=== PATIENT | female | born 1995 | race Caucasian/White ===

== ENCOUNTER 2017-01-07 22:46 | Inpatient (IN) | payer OTHER ==
[~2017-01-07] VITALS: Ht 160 cm; Wt 56.2 kg
[2017-01-07 23:05] VITALS: Ht 160 cm; Wt 56.2 kg
[2017-01-07 23:07] VITALS: BP 111/60; PULSE 59; RESP 18
[2017-01-07] MEDS ORDERED: PRENAT PO (23:14)
[2017-01-07] MEDS ORDERED: CYAN100018 PO (23:14)
[2017-01-07] MEDS ORDERED: IRON18TA PO (23:14)
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
[2017-01-07] MEDS: LACTATED RINGER'S 1,000 ML IV* SCH (23:35)
[2017-01-08 00:07] LABS: ADD SCAN DIFF NO
[2017-01-08 00:09] LABS: ABNORMAL IP MESSAGE 1; HEMATOCRIT 28.9 % (37.0-47.0); HEMOGLOBIN 8.6 g/dl (12.0-16.0); MEAN CORPUSCULAR HEMOGLOBIN 21.1 pg (29.0-33.0); MEAN CORPUSCULAR HGB CONC 29.8 g/dl (32.0-37.0); PLATELET COUNT 210 10^3/UL (140-415); RED BLOOD COUNT 4.07 10^6/ul (4.20-5.40); RED CELL DISTRIBUTION WIDTH 20.1 % (11.5-14.5); WHITE BLOOD COUNT 11.9 10^3/ul (4.8-10.8)
[2017-01-08 01:58] LABS: LYMPHOCYTES # 1.3 10^3/ul (0.8-2.9); MONOCYTE # 0.2 10^3/ul (0.3-0.9); NEUTROPHIL # 10.4 10^3/ul (1.6-7.5)
[2017-01-08 02:02] LABS: PLATELET ESTIMATE PLT APPEAR ADEQUATE
[2017-01-08] MEDS: LACTATED RINGER'S 1,000 ML IV* SCH ×3 (02:05→13:18)
--- NOTE | 2017-01-08 02:19 | RADRPT ---
PROCEDURE: Biophysical profile. CLINICAL INDICATION: Pelvic pain. TECHNIQUE: Multiple sonographic images of the pelvis were obtained with transabdominal technique. Endovaginal evaluation of the cervix was also performed. COMPARISON: No prior studies are available for comparison. FINDINGS: There is a single living intrauterine gestation with the fetus in a vertex position. The placenta i s anterior in location, grade II. heart tones of 128 beats per minute are identified. There i s normal amniotic fluid volume with an ELVIS of 12.6 cm. The cervix is closed measuring 3.6 cm. breathing movements = 2 Gross body movements = 2 tone = 2 Qualitative AFV = 2 IMPRESSION: Biophysical profile 8 out of 8. .Jose Baltazar MD, Date Time Electronically viewed and signed by .Jose Baltazar MD, MD on 01/08/2017 02:18 .T/
--- NOTE | 2017-01-08 02:20 | RADRPT ---
PROCEDURE: Obstetrical ultrasound, limited. CLINICAL INDICATION: Pelvic pain. TECHNIQUE: Multiple sonographic images of the pelvis were obtained using transabdominal technique . Images were obtained with muñoz scale and color Doppler. The images were reviewed on a PACS works tation. COMPARISON: No prior studies are available for comparison. FINDINGS: There is a single living intrauterine gestation with the fetus in a vertex presentation. hear t tones of 134 beats per minute are identified. The placenta is anterior in location, grade 2. The re is no evidence of placenta previa or abruption. Measurements were made in order to determine age. The results are as follows: BPD =8.24 cm HC =30.14 cm AC =27.66 cm FL =6.36 cm. Estimated gestational age of approximately 32 weeks and 6 days. The estimated date of delivery is 02/27/2017. The EFW = 1960 +/- 294 grams. Estimated weight percentage equals 82.6%. IMPRESSION: Single viable intrauterine gestation of approximately 32 weeks and 6 days, with an ultrasound MICHELLE of 02/27/2017. .Jose Baltazar MD, MD Date Time Electronically viewed and signed by .Jose Baltazar MD, MD on 01/08/2017 02:20 .T/
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
[2017-01-08] MEDS ORDERED: ONDANSETRON 4 MG INJ ONE (08:55)
[2017-01-08] MEDS: ONDANSETRON 4 MG INJ IV PRN ×2 (09:00→09:02)
[2017-01-08] MEDS: ACETAMINOPHEN 325 MG TAB PO PRN ×2 (15:10→21:16)
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
[2017-01-08] MEDS: LACTATED RINGER'S 1,000 ML IV SCH ×2 (15:38→20:37)
[2017-01-09] MEDS: LACTATED RINGER'S 1,000 ML IV SCH ×2 (03:26→10:03)
[2017-01-09] MEDS: ACETAMINOPHEN 325 MG TAB PO PRN (06:57)
[2017-01-09 09:56] LABS: ADD UMIC YES; URINE BILIRUBIN (Dip) NEGATIVE (NEGATIVE); URINE BLOOD (Dip) NEGATIVE (NEGATIVE); URINE COLOR LT. YELLOW (YELLOW); URINE GLUCOSE (Dip) NEGATIVE (NEGATIVE); URINE KETONES (Dip) NEGATIVE (NEGATIVE); URINE LEUKOCYTE ESTERASE (Dip) TRACE (NEGATIVE); URINE NITRITE (Dip) NEGATIVE (NEGATIVE); URINE TOTAL PROTEIN (Dip) NEGATIVE (NEGATIVE); URINE UROBILINOGEN (Dip) 0.2 E.U./dL (0.1-1.0)
[2017-01-09] MEDS ORDERED: TERBUTALINE 1 MG/ML INJ SC ONE (10:00)
[2017-01-09 10:25] LABS: SQUAMOUS EPITHELIAL CELL,UR OCCASIONAL; URINE RBCS NONE SEEN /HPF (0)
== END 2017-01-09 13:30 | disposition home or self-care (01) | DRG 923 ==
LOC: OBT 22:46 → L-D 22:48 → OBT 01-08 00:34 → OBG 01-08 00:34 → UNDODISIN 01-08 16:40
PROVIDERS: ADMIT Obstetrics & Gynecology; ATTEND Obstetrics & Gynecology
DX: Z04.1 Encounter for examination and observation following transport accident (principal); O26.893 Other specified pregnancy related conditions, third trimester; Z3A.31 31 weeks gestation of pregnancy
CPT/HCPCS: 76815; 76817; 76818; 81001; 81003; 82731; 85025; 85460; 86850; 86900; 86901; 96360; 96361; G0463; J2405; J3105; J7120

== ENCOUNTER 2017-01-11 18:39 | Inpatient (IN) | payer OTHER ==
[~2017-01-11] VITALS: Ht 160 cm; Wt 54.1 kg
[~2017-01-11 18:39] MED LIST: CYAN100018 PO; IRON18TA PO; PRENAT PO
[2017-01-11] MEDS ORDERED: LACTATED RINGER'S 1,000 ML IV STA (19:24)
[2017-01-11 19:38] VITALS: BP 119/59; PULSE 84; RESP 18
[2017-01-11 19:41] VITALS: Ht 160 cm; Wt 54.1 kg
--- NOTE | 2017-01-11 19:49 | RADRPT ---
PROCEDURE: Limited obstetric ultrasound CLINICAL INDICATION: Pain TECHNIQUE: Multiple transverse and longitudinal grayscale images of the pelvis were obtained santos sabdominally and transvaginally.. COMPARISON: 01/08/2017 FINDINGS: The cervix is closed with a length of 4.1 cm. There is a single viable intrauterine gestation. Cardiac activity is present with 146 beats per min jalen. There is a vertex presentation. The placenta is anterior. There is no evidence for an abruption or placenta previa. RPTAT: AA IMPRESSION: Cervix length measures 4.1 cm. .Adelso Luna MD, Date Time Electronically viewed and signed by .Adelso Luna MD, on 01/11/2017 19:49 .S/
[2017-01-11 20:22] LABS: ADD UMIC NO; URINE BILIRUBIN (Dip) NEGATIVE (NEGATIVE); URINE BLOOD (Dip) NEGATIVE (NEGATIVE); URINE COLOR LT. YELLOW (YELLOW); URINE GLUCOSE (Dip) NEGATIVE (NEGATIVE); URINE KETONES (Dip) NEGATIVE (NEGATIVE); URINE LEUKOCYTE ESTERASE (Dip) NEGATIVE (NEGATIVE); URINE NITRITE (Dip) NEGATIVE (NEGATIVE); URINE TOTAL PROTEIN (Dip) NEGATIVE (NEGATIVE); URINE UROBILINOGEN (Dip) 0.2 E.U./dL (0.1-1.0)
[2017-01-11] MEDS: LACTATED RINGER'S 1,000 ML IV SCH (20:30)
[2017-01-11 20:38] LABS: BARBITURATES Negative (NEGATIVE); BENZODIAZEPINES Negative (NEGATIVE)
[2017-01-11 20:43] LABS: CANNABINOIDS Positive (NEGATIVE); COCAINE Negative (NEGATIVE); OPIATES Negative (NEGATIVE)
--- NOTE | 2017-01-11 21:47 | CONS ---
Date/Time of Note Date/Time of Note DATE: 01/11/17 TIME: 21:46 Assessment/Plan Assessment/Plan Additional Assessment/Plan 1) Chest Pain, Rule Out, doubt Cardiac Source - Initial Labs: CBC, CMP, Troponin, Total CK, CK-MB, BNP, D-Dimer - Serial Troponins over night - AM Labs: Magnesium, CHD Panel - Repeat EKG in AM 2) Undiagnosed Cardiac Murmur - Echocardiogram in AM 3) IUP at 31 4/7 - Followed by Laborist Thank you for the consult. We will be happy to follow-up on patient in the morning. Consultation Date/Type/Reason Admit Date/Time 01/11/17 2140 Date of Consultation: Jan 11, 2017 Type of Consultation: Medicine Reason for Consultation Chest Pain, Heart Murmur Referring Provider: JOHNNY LEE MD Hx of Present Illness Thank you for asking me to evaluate this young lady. She is a 21 year old at 31 4/7 weeks who came into OB Triage for Uterine Contractions, but also complained of chest pain, shortness of breath and upper abdominal pain.Patient states she has been having chest pain all week, but that it got worse today and is associated with shortness of breath. Nothing seems to have made it better, but all she has tried is turning her torso from side to side (she demonstrates) . Lying flat makes the pain worse. Currently she has no pain or shortness of breath. It comes and goes. The pain is described as a pressure "like someone sitting on me". It is not associated with nausea, vomiting, sweating or upper back pain. It does not radiate. She has had pain in her epigastrium (where she points), but no history of GERD, heartburn or PUD. She has no cardiac history, other than she was recently told that she has a heart murmur at an OB appointment. She didn't start care until she was 5 or 6 months along. She was not referred for an echo. She was told the heart murmur was likely from anemia. She does have a history of anemia. She had a mild headache earlier, but no vision changes, no cough or wheezing, palpitations or lower extremity swelling. She has no history of Asthma, Bronchitis or Pneumonia. She denies alcohol, tobacco and street drugs, other than marijuana. She admits to smoking marijuana most every day since she was 19 and "got [her] card". She takes it for low back pain that does not seem to have been fully evaluated. She does say that she has been cutting back because she is . General: Admits: Denies: Fever, Chills, Poor Appetite, Generalized Body Aches Eyes: Admits: Denies: Blurry Vision, Double Vision HENT: Admits: Denies: Ear Pain/Pressure, Runny/Stuffy Nose, Sore Throat Cardiovascular: Admits: Chest Pain Denies: Palpitations, Leg Swelling Pulmonary: Admits: Shortness of Breath Denies: Cough, Wheeze Gastrointestinal: Admits: Abdominal Pain Denies: Nausea, Vomiting, Diarrhea, Blood in Stool, Black-Colored Stool Genitourinary: Admits: Uterine Contractions, feeling baby move, no vaginal bleeding, no unusual vaginal discharge Denies: Burning with Urination, Urinary Frequency, Blood in Urine Musculoskeletal: Admits: Chronic Low Back Pain Denies: Joint Pain, Joint Swelling, Muscle Pain Neurological: Admits: Headache, mild, occasional Denies: Dizziness, Numbness, Tingling, Shooting Pains Integumentary: Admits: Denies: Rash, Itch Endocrine: Admits: Denies: Excessive Thirst, Excessive Hunger, Intolerant to Cold , Intolerant to Heat Psychiatric: Admits: Anxiety, Depression Denies: Past Medical History Chronic LBP; Heart Murmur, recently found, not yet worked-up No: Asthma, Bronchitis, Pneumonia, CAD, DM, HTN, High Cholesterol Past Surgical History Past Surgical Hx: no surgical history Social History Alcohol Use: none Smoking Status: Current every day smoker (Marijuana, not cigarettes) Drug Use: marijuana Exam/Review of Systems Vital Signs Vitals Vital Signs Date Time Temp Pulse Resp B/P Pulse Ox O2 Delivery O2 Flow Rate FiO2 01/11/17 19:38 98.0 84 18 119/59 99 Room Air Exam General: Plesant 21 year old female lying in bed, in no acute distress, talking in full sentences. Eyes: Sclera White, EOMI HENT: Normocephalic/Atraumatic, External Ears/Nose Normal, Moist Mucus Membranes Neck: Supple, Trachea Midline Cardiovascular: Normal Rate, Regular Rhythm, with a mid-systolic murmur and a diastolic murmurs, No Extra Sounds. Radial pulse +2/4. No pedal Edema. Pulmonary: Clear to Auscultation Bilaterally, Normal Respiratory Effort, No Rales, Rhonchi or Wheezes Gastrointestinal: Normoactive Bowel Sounds, Gravid, Soft, Non-Tender/Non- Distended Urogenital: Deferred Musculoskeletal: Normal Muscle Bulk and Tone Neurological: CN II - XII Grossly Intact, Non-Focal, Speech Normal Integumentary: Normal Moisture and Temperature, Good Turgor, No Jaundice, No Rash Lymphatic: No Cervical Lymphadenopathy Psychiatric: Appropriate Mood and Affect, Good Eye Contact Results Results 24 hrs Laboratory Tests Test 01/11/17 18:43 Urine Color LT. YELLOW Urine Clarity CLEAR Urine pH 7.0 Urine Specific [place] <=1.005 L Urine Ketones NEGATIVE Urine Nitrite NEGATIVE Urine Bilirubin NEGATIVE Urine Urobilinogen 0.2 E.U./dL Urine Leukocyte Esterase NEGATIVE Urine Hemoglobin NEGATIVE Urine Glucose NEGATIVE Urine Total Protein NEGATIVE Urine Opiates Screen Negative Urine Barbiturates Negative Urine Amphetamines Screen Negative Urine Benzodiazepines Screen Negative Urine Cocaine Screen Negative Urine Cannabinoids Positive Medications Medications Current Medications Lactated Ringer's (Lr) 1,000 ml @ 125 mls/hr Q8H IV ; Start 01/11/17 at 20:30 Procedures Procedures EKG: Normal Sinus Rhythm with Sinus Arrhythmia at 74 BPM with some non-specific T-wave changes. No acute findings. JEAN ORTIZ DO Jan 11, 2017 21:47
[2017-01-11] MEDS: DEXTROSE 5%-LR 1,000 ML IV SCH (22:16)
[2017-01-11 22:19] LABS: D-DIMER 1280.29 ng/ml (<460)
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
[2017-01-11] MEDS ORDERED: NIFEdipine 10 MG CAP ONE (22:23)
[2017-01-11] MEDS: NIFEdipine 10 MG CAP PO SCH ×3 (22:27→23:46)
[2017-01-11 22:31] LABS: CREATINE KINASE 21 IU/L (23-200)
[2017-01-11 22:41] LABS: B-TYPE NATRIURETIC PEPTIDE 27 PG/ML (0-125)
[2017-01-11 22:45] LABS: CK-MB < 0.22 ng/ml (0.0-2.4)
[2017-01-11 22:54] LABS: TROPONIN-I < 0.012 ng/ml (0.00-0.12)
[2017-01-11] MEDS ORDERED: ACETAMINOPHEN 1000MG/100ML IV 100 ML IVPB ONE (23:00)
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
[2017-01-12 02:00] LABS: ADD SCAN DIFF NO; BASOPHILS % 0.1 % (0.0-2.0); EOSINOPHILS % 0.3 % (0.0-7.0); HEMATOCRIT 29.4 % (37.0-47.0); HEMOGLOBIN 8.7 g/dl (12.0-16.0); LYMPHOCYTES # 1.6 10^3/ul (0.8-2.9); LYMPHOCYTES % 17.1 % (18.0-55.0); MEAN CORPUSCULAR HEMOGLOBIN 20.9 pg (29.0-33.0); MEAN CORPUSCULAR HGB CONC 29.6 g/dl (32.0-37.0); MEAN CORPUSCULAR VOLUME 70.5 fl (72.0-104.0); MEAN PLATELET VOLUME 10.7 fl (7.4-10.4); MONOCYTE # 0.7 10^3/ul (0.3-0.9); MONOCYTES % 7.1 % (0.0-13.0); NEUTROPHIL # 6.9 10^3/ul (1.6-7.5); NEUTROPHILS % 74.9 % (30.0-74.0); PLATELET COUNT 233 10^3/UL (140-415); RED BLOOD COUNT 4.17 10^6/ul (4.20-5.40); WHITE BLOOD COUNT 9.2 10^3/ul (4.8-10.8)
[2017-01-12 02:07] LABS: ALBUMIN 3.4 g/dl (3.3-4.9); ALBUMIN/GLOBULIN RATIO 1.06; BILIRUBIN,INDIRECT 0.3 mg/dl (0-1.1); BILIRUBIN,TOTAL 0.3 mg/dl (0.2-1.3); CREATININE 0.44 mg/dl (0.44-1.00); POTASSIUM 3.7 mmol/L (3.5-5.1); TOTAL PROTEIN 6.6 g/dl (6.1-8.1)
[2017-01-12] MEDS: LACTATED RINGER'S 1,000 ML IV SCH ×3 (04:30→21:13)
[2017-01-12] MEDS: DEXTROSE 5%-LR 1,000 ML IV SCH ×3 (05:40→21:40)
[2017-01-12 07:22] LABS: CREATINE KINASE < 20 IU/L (23-200)
[2017-01-12 07:24] LABS: CHOL/HDL RATIO 2.6 RATIO; MAGNESIUM 1.5 mg/dl (1.7-2.5)
[2017-01-12 07:33] LABS: CK-MB < 0.22 ng/ml (0.0-2.4)
[2017-01-12 07:36] LABS: TROPONIN-I < 0.012 ng/ml (0.00-0.12)
[2017-01-12] MEDS ORDERED: MAGNESIUM OXIDE 400 MG TAB PO ONE (11:30)
[2017-01-12] MEDS ORDERED: ONDANSETRON 4 MG INJ IV PRN (13:30)
--- NOTE | 2017-01-12 14:41 | CONS ---
Date/Time of Note Date/Time of Note DATE: 01/12/17 TIME: 14:38 Consult Date/Type/Reason Admit Date/Time Jan 11, 2017 at 20:30 Initial Consult Date 01/11/17 Type of Consultation: Medicine Ordering Provider: JOHNNY LEE MD Subjective Pt has less cp now. ECHO performed (results pending). Objective Vital Signs Date Time Temp Pulse Resp B/P Pulse Ox O2 Delivery O2 Flow Rate FiO2 01/11/17 19:38 98.0 84 18 119/59 99 Room Air Intake and Output 01/11/17 01/11/17 01/12/17 15:00 23:00 07:00 Intake Total 500 ml Output Total 300 ml Balance 200 ml Exam General: Plesant 21 year old female lying in bed, in no acute distress, talking in full sentences. Eyes: Sclera White, EOMI HENT: Normocephalic/Atraumatic, External Ears/Nose Normal, Moist Mucus Membranes Neck: Supple, Trachea Midline Cardiovascular: Normal Rate, Regular Rhythm, with a mid-systolic murmur and a diastolic murmurs Pulmonary: Clear to Auscultation Bilaterally, Normal Respiratory Effort, No Rales, Rhonchi or Wheezes Gastrointestinal: Normoactive Bowel Sounds, Gravid, Soft, Non-Tender/Non- Distended Musculoskeletal: Normal Muscle Bulk and Tone Neurological: CN II - XII Grossly Intact, Non-Focal, Speech Normal Integumentary: Normal Moisture and Temperature, Good Turgor, No Jaundice, No Rash Lymphatic: No Cervical Lymphadenopathy Psychiatric: Appropriate Mood and Affect, Good Eye Contact Results/Medications Result Diagram: 01/12/17 0200 01/12/17 0200 Results 24 hrs Laboratory Tests Test 01/11/17 18:43 01/11/17 19:30 01/12/17 02:00 01/12/17 06:00 Urine Color LT. YELLOW Urine Clarity CLEAR Urine pH 7.0 Urine Specific [place] <=1.005 L Urine Ketones NEGATIVE Urine Nitrite NEGATIVE Urine Bilirubin NEGATIVE Urine Urobilinogen 0.2 E.U./dL Urine Leukocyte Esterase NEGATIVE Urine Hemoglobin NEGATIVE Urine Glucose NEGATIVE Urine Total Protein NEGATIVE Urine Opiates Screen Negative Urine Barbiturates Negative Urine Amphetamines Screen Negative Urine Benzodiazepines Screen Negative Urine Cocaine Screen Negative Urine Cannabinoids Positive D-Dimer 1280.29 H D-Dimer Comment Creatine Kinase 21 L < 20 L Creatine Kinase Index 1.0 Creatinine Kinase MB (Mass) < 0.22 < 0.22 Troponin I < 0.012 < 0.012 B-Type Natriuretic Peptide 27 White Blood Count 9.2 # Red Blood Count 4.17 L Hemoglobin 8.7 L Hematocrit 29.4 L Mean Corpuscular Volume 70.5 L Mean Corpuscular Hemoglobin 20.9 L Mean Corpuscular Hemoglobin Concent 29.6 L Red Cell Distribution Width 20.0 H Platelet Count 233 Mean Platelet Volume 10.7 H Neutrophils % 74.9 H Lymphocytes % 17.1 L Monocytes % 7.1 Eosinophils % 0.3 Basophils % 0.1 Nucleated Red Blood Cells % 0.0 Neutrophils # 6.9 Lymphocytes # 1.6 Monocytes # 0.7 Eosinophils # 0.0 Basophils # 0.0 Nucleated Red Blood Cells # 0.0 Sodium Level 134 L Potassium Level 3.7 Chloride Level 105 Carbon Dioxide Level 22 Anion Gap 11 Blood Urea Nitrogen 6 L Creatinine 0.44 Glucose Level 80 Calcium Level 9.0 Total Bilirubin 0.3 Direct Bilirubin 0.00 Indirect Bilirubin 0.3 Aspartate Amino Transf (AST/SGOT) 18 Alanine Aminotransferase (ALT/SGPT) 17 Alkaline Phosphatase 122 H Total Protein 6.6 Albumin 3.4 Globulin 3.20 Albumin/Globulin Ratio 1.06 Magnesium Level 1.5 L Triglycerides Level 177 H Cholesterol Level 222 H LDL Cholesterol, Calculated 103 HDL Cholesterol 84 H Cholesterol/HDL Ratio 2.6 Medications Current Medications Lactated Ringer's 1,000 ml @ 125 mls/hr Q8H IV ; Start 01/11/17 at 20:30 Dextrose/Lactated Ringer's (D5-Lr) 1,000 ml @ 125 mls/hr Q8H IV Last administered on 01/12/17t 05:40; Admin Dose 125 MLS/HR; Start 01/11/17 at 21:40 Nifedipine (Procardia) 10 mg Q30MIN PO Last administered on 01/11/17 23:46; Admin Dose 10 MG; Start 01/11/17 at 22:30; Stop 01/13/17 at 22:31 Ondansetron HCl (Zofran Inj) 4 mg Q6H PRN IV NAUSEA AND/OR VOMITING; Start at 13:30 Assessment/Plan Chief Complaint/Hosp Course Assessment/Plan 1) Chest Pain, Rule Out, doubt Cardiac Source. First 2 troponins are neg thus far. - f/u 3rd Troponin, 2D ECHO results - replets low Magnesium 2) Undiagnosed Cardiac Murmur - Echocardiogram in AM - again results pending 3) IUP at 31 12/30 - Followed by Laborist rec's Thank you for the consult. We will continue to follow. Problems: CRISTINO VENTURA Jan 12, 2017 14:41
--- NOTE | 2017-01-12 18:08 | RADRPT ---
Echocardiogram Report Patient Name: OLIVER SANCHEZ Gender: Female Date: 1995 Study Date: 12-Jan-2017 Marketing/Sales Person: [facility] Location: [id number] Ref. Physician: JEAN ORTIZ Quality: Good Procedures: Transthoracic echocardiogram with complete 2D, M-Mode, and doppler examination. Indications: Chest Pain. 2D/M Mode Doppler Measurement Value Normal Ranges Measurement Value Normal Ranges LVIDd 2D 4.5 3.5 - 5.6 cm KEISHA Vmax 1.9 cm2 LVIDs 2D 2.9 2.1 - 4.1 cm AV Peak Abdirizak 1.7 m/sec FS 2D 35.0 % AV Peak PG 12.0 mmHg LVPWd 2D 0.6 0.6 - 1.1 cm LVOT Peak Abdirizak 1.4 m/sec IVSd 2D 0.7 0.6 - 1.1 cm LVOT Peak PG 8.0 mmHg IVS/LVPW 2D 1.0 MV E Peak Abdirizak 0.9 m/sec AoR Diam 2D 2.1 2.0 - 3.7 cm MV A Peak Abdirizak 0.7 m/sec LA/Ao 2D 1 0 - 1 MV E/A 1.2 EDV 2D 91.7 cm3 MV Decel Time 180 msec ESV 2D 25.2 cm3 MV E/A 1.2 LA Dimen 2D 2.7 2.3 - 4.0 cm TR Peak Abdirizak 2.0 m/sec LVOT Diam 1.7 cm TR Peak PG 16.0 mmHg LVOT Area 2.3 cm2 RVSP 19.0 mmHg Findings Left Ventricle: Normal left ventricular systolic function. Normal left ventricular cavity size. Normal left ventricular wall thickness. Ejection fraction is visually estimated at 65 %. Tissue Doppler/Mitral Doppler indices are within normal limits. Right Ventricle: Normal right ventricular size. Normal right ventricular systolic function. Left Atrium: The left atrium is normal in size. Right Atrium: The right atrium is normal in size. Mitral Valve: Normal appearance and function of the mitral valve with trace physiologic regurgitation. Aortic Valve: Normal appearance of the aortic valve. No significant aortic stenosis or insufficiency. Tricuspid Valve: Normal appearance and function of the tricuspid valve with trace physiologic regurgitation. Normal right ventricular systolic pressure. Estimated peak PA systolic pressure 19 mmHg. Pulmonic Valve: Normal pulmonic valve appearance. Pericardium: Normal pericardium with no significant pericardial effusion. Aorta: Normal aortic root. IVC: Normal size and normal respiratory collapse consistent with normal right atrial pressure. Conclusions 1.Normal left ventricular systolic function. Normal left ventricular cavity size. Normal left ventricular wall thickness. Ejection fraction is visually estimated at 65 %. Tissue Doppler/Mitral Doppler indices are within normal limits. 2.Normal right ventricular size. Normal right ventricular systolic function. 3.The left atrium is normal in size. 4.The right atrium is normal in size. 5.No significant valvular stenosis or regurgitation seen. 6.Normal pericardium with no significant pericardial effusion. Electronically Signed By: Naveen Sanchez 12-Jan-2017 18:07:02 -0700 Patient Name: OLIVER SANCHEZ Study Date: 12-Jan-2017 [id number]
[2017-01-12] MEDS ORDERED: ACETAMINOPHEN 500 MG TAB PO STA (20:58)
[2017-01-13] MEDS: LACTATED RINGER'S 1,000 ML IV SCH (02:47)
--- NOTE | 2017-01-13 09:31 | RADRPT ---
Vent Rate: 72 bpm RR Interval: 0 msec AR Interval: 140 msec QRS Duration: 82 msec QT Interval: 382 msec QTC Interval: 418 msec P-R-T [place]: 48 - 74 - 41 degrees Normal sinus rhythm Normal ECG Electronically Signed By: Jayme Brian [id number]
--- NOTE | 2017-01-13 09:31 | RADRPT ---
Vent Rate: 84 bpm RR Interval: 0 msec [place] Interval: 146 msec QRS Duration: 80 msec QT Interval: 372 msec QTC Interval: 439 msec P-R-T [place]: 67 - 67 - 40 degrees Normal sinus rhythm Normal ECG Electronically Signed By: Jayme Brian [id number]
--- NOTE | 2017-01-13 10:11 | CONS ---
Date/Time of Note Date/Time of Note DATE: 01/13/17 TIME: 10:08 Consult Date/Type/Reason Admit Date/Time Jan 11, 2017 at 20:30 Initial Consult Date 01/11/17 Type of Consultation: Medicine Ordering Provider: JOHNNY LEE MD Subjective No present cp. Objective Vital Signs Date Time Temp Pulse Resp B/P Pulse Ox O2 Delivery O2 Flow Rate FiO2 01/11/17 19:38 98.0 84 18 119/59 99 Room Air Intake and Output 01/12/17 01/12/17 01/13/17 15:00 23:00 07:00 Intake Total 750 ml 1250 ml 1000 ml Output Total 400 ml 600 ml 900 ml Balance 350 ml 650 ml 100 ml Exam General: Plesant 21 year old female lying in bed, in no acute distress, talking in full sentences. Eyes: Sclera White, EOMI HENT: Normocephalic/Atraumatic, External Ears/Nose Normal, Moist Mucus Membranes Neck: Supple, Trachea Midline Cardiovascular: Normal Rate, Regular Rhythm, with a mid-systolic murmur and a diastolic murmurs Pulmonary: Clear to Auscultation Bilaterally, Normal Respiratory Effort, No Rales, Rhonchi or Wheezes Gastrointestinal: Normoactive Bowel Sounds, Gravid, Soft, Non-Tender/Non- Distended Musculoskeletal: Normal Muscle Bulk and Tone Neurological: CN II - XII Grossly Intact, Non-Focal, Speech Normal Integumentary: Normal Moisture and Temperature, Good Turgor, No Jaundice, No Rash Lymphatic: No Cervical Lymphadenopathy Psychiatric: Appropriate Mood and Affect, Good Eye Contact Results/Medications Result Diagram: 01/12/17 02001/12/17 0200 Results 24 hrs Laboratory Tests Test 01/12/17 13:55 Troponin I < 0.012 2D ECHO results: Conclusions 1. Normal left ventricular systolic function. Normal left ventricular cavity size. Normal left ventricular wall thickness. Ejection fraction is visually estimated at 65 %. Tissue Doppler/Mitral Doppler indices are within normal limits. 2. Normal right ventricular size. Normal right ventricular systolic function. 3. The left atrium is normal in size. 4. The right atrium is normal in size. 5. No significant valvular stenosis or regurgitation seen. 6. Normal pericardium with no significant pericardial effusion. Medications Current Medications Lactated Ringer's (Lr) 1,000 ml @ 125 mls/hr Q8H IV Last administered on t 02:47; Admin Dose 125 MLS/HR; Start 01/11/17 at 20:30 Ondansetron HCl (Zofran Inj) 4 mg Q6H PRN IV NAUSEA AND/OR VOMITING; Start at 13:30 Assessment/Plan Chief Complaint/Hosp Course Assessment/Plan 1) Chest Pain, Rule Out, doubt Cardiac Source. 3 troponins are neg thus far. 2D ECHO results as above - monitor for now, CV status appears stable at this point 2) Undiagnosed Cardiac Murmur - Echocardiogram in AM - again results as above - monitor 3) IUP at 31 12/30 - Followed by Laborist rec's Thank you for the consult. We will continue to follow. Problems: CRISTINO VENTURA Jan 13, 2017 10:11
--- NOTE | 2017-01-13 10:13 | PN ---
Date/Time of Note Date/Time of Note DATE: 01/13/17 TIME: 10:10 OB Subjective Subjective Subjective Patient denies any pain currently. OB Objective Objective Objective Gen: NAD Abd: gravid, NT FHT: reactive [place]: no UCs OB Assessment/Plan Other Assessment: at 31.4 weeks admitted for abdominal and chest pain. Work-up for chest pain was negative. Abdominal pain resolved, no e/o ptl. Other plan: Discharge home with ptl precautions. F/u with OB. MARILEE CARROLL Jan 13, 2017 10:13
--- NOTE | 2017-01-13 12:24 | PN ---
Date/Time of Note Date/Time of Note DATE: 01/13/17 TIME: 11:54 OB Subjective Subjective Subjective Hospital visit January 12/2017 This patient is a 21 years old G 4 ,P 1 ,Ab 2 with AUG of 03/11/2017 which makes her 31 weeks and 5 days. Came to OB triage complaining of shortness of breath ,chest pain, and upper abdominal cramp. She is smoking Marijuana and gives history of heart murmur,anemia. In triage she was having scattered contractions . heart tone was normal. Cardiology consult requested Her EKG was abnormal : Sinus arrhythmia. She will have Echocardiogram for further evaluation. When I visited her she was fairly comfortable ,No complain of shortness of breath ,.she was having occasional contractions, heart tracing was reactive with good variability and occasional acceleration, N decells. She states she is trying to cut down on Marijuana use . Ob stokes she is stable . Laboratory Tests Test 01/12/17 13:55 Troponin I < 0.012ng/ml Current Medications Medications (Trade) Dose Ordered Sig/[place] Route PRN Reason Start Time Stop Time Status Last Admin Dose Admin Lactated Ringer's 1,000 ml @ 1,000 mls/hr Q1H STAT IV 01/11/17 19:24 01/11/17 20:23 DC Lactated Ringer's 1,000 ml @ 125 mls/hr Q8H IV 01/11/17 20:30 01/13/17 02:47 Dextrose/Lactated Ringer's (D5-Lr) 1,000 ml @ 125 mls/hr Q8H IV 01/11/17 21:40 01/12/17 22:09 DC 01/12/17 15:47 Nifedipine (Procardia) 10 mg Q30MIN PO 01/11/17 22:30 01/13/17 00:05 DC 01/11/17 23:46 Nifedipine 10 mg 10 mg STK-MED ONCE .ROUTE 01/11/17 22:23 01/11/17 22:24 DC Acetaminophen (Ofirmev 1000mg/ 100ml Iv) 100 ml @ 400 mls/hr ONCE ONCE IVPB 01/11/17 23:00 01/11/17 23:14 DC 01/11/17 23:47 Magnesium Oxide (Mag-Ox 400) 400 mg ONCE ONCE PO 01/12/17 11:30 01/12/17 11:31 DC 01/12/17 12:49 Ondansetron HCl (Zofran Inj) 4 mg Q6H PRN IV NAUSEA AND/OR VOMITING 01/12/17 13:30 Acetaminophen (Tylenol Tab) 1,000 mg ONCE STAT PO 01/12/17 20:58 01/12/17 20:59 DC 01/12/17 21:12 ERICH LI MD Jan 13, 2017 12:22
== END 2017-01-13 11:15 | disposition home or self-care (01) | DRG 780 ==
LOC: OBT 18:39 → L-D 18:39 → OBG 20:30 → OBT 20:30
PROVIDERS: ADMIT Obstetrics & Gynecology; ATTEND Obstetrics & Gynecology
DX: O47.03 False labor before 37 completed weeks of gestation, third trimester (principal); R07.9 Chest pain, unspecified; Z3A.31 31 weeks gestation of pregnancy
CPT/HCPCS: 36415; 76817; 80053; 80061; 80307; 81003; 82550; 82553; 83735; 83880; 84484; 85025; 85378; 93005; 93306; 96360; 96361; G0463; J0131; J2405; J7120; J7121

== ENCOUNTER 2017-01-30 02:40 | Outpatient (CLI) | payer OTHER ==
[~2017-01-30] VITALS: Ht 160 cm; Wt 58.4 kg
[2017-01-30 02:52] VITALS: Ht 160 cm; Wt 58.4 kg
[2017-01-30 02:53] VITALS: BP 108/54; PULSE 71; RESP 18
[2017-01-30] MEDS ORDERED: LACTATED RINGER'S 1,000 ML IV ONE (04:30)
[2017-01-30] MEDS ORDERED: TERBUTALINE 1 MG/ML INJ SC ONE ×2 (04:30→05:30)
--- NOTE | 2017-01-30 04:56 | QN ---
Documentation Comment Laborist RABIA/Dr Winters pt 21 y.o. with an IUP at 36w 5d c/o UC's that started at 0100. No VB or leaking. PMHx: none. PSHx: none. NKDA. 108/54 T= 98.0 NST: baseline 110-120 bpm with accels to 160 bpm. No decels. UC's initially q 2- 5 minutes. After one dose of terbutaline they spaced out to q 6-8 minutes and pt reports them as much milder than before. BPP/ELVIS check pending. U/A pending. CX: 50%/-4. A: IUP at 36w 5d. False labor. P: If U/A and BPP/ELVIS are all within normal limits will d/c pt home. Pt reports that she is starting twice weekly NST's/ELVIS's this week and she already has an appt with perinatology. LUISA SYED MD January 30, 2017 04:56
--- NOTE | 2017-01-30 05:03 | RADRPT ---
PROCEDURE: ULTRASOUND BIOPHYSICAL PROFILE CLINICAL INDICATION: 21-year-old female with pelvic pain for viability. TECHNIQUE: Multiple sonographic images were obtained in order to perform a biophysical profile The images were reviewed on a PACS workstation. COMPARISON: Ultrasound OB limited January 11, 2017. FINDINGS: There is a single viable intrauterine gestation. There is a vertex presentation. Cardiac activity i s present at 163 beats per minute. The placenta is anterior. The results of the biophysical profile are as follows: breathing movement = 2/2 Gross body movement = 2/2 tone = 2/2 Qualitative amniotic fluid volume = 2/2 Amniotic fluid index equals 11.5 cm. This yields a biophysical profile score of 8/8. IMPRESSION: Biophysical profile score is 8/8. .Guzman Damon MD, MD Date Time Electronically viewed and signed by .Guzman Damon MD, on 01/30/2017 05:02 .M/
[2017-01-30 06:08] LABS: ADD UMIC NO; URINE BILIRUBIN (Dip) NEGATIVE (NEGATIVE); URINE BLOOD (Dip) NEGATIVE (NEGATIVE); URINE COLOR LT. YELLOW (YELLOW); URINE GLUCOSE (Dip) NEGATIVE (NEGATIVE); URINE KETONES (Dip) NEGATIVE (NEGATIVE); URINE LEUKOCYTE ESTERASE (Dip) NEGATIVE (NEGATIVE); URINE NITRITE (Dip) NEGATIVE (NEGATIVE); URINE TOTAL PROTEIN (Dip) NEGATIVE (NEGATIVE); URINE UROBILINOGEN (Dip) 0.2 E.U./dL (0.1-1.0)
[2017-01-30] MEDS ORDERED: NIFEdipine 10 MG CAP PO ONE (07:00)
== END 2017-01-30 08:30 | disposition home or self-care (01) ==
LOC: OBT 02:40 → L-D 02:40 → OBT 08:30
PROVIDERS: ATTEND Obstetrics & Gynecology
DX: O47.03 False labor before 37 completed weeks of gestation, third trimester (principal); R10.2 Pelvic and perineal pain; Z3A.36 36 weeks gestation of pregnancy
CPT/HCPCS: 76818; 81003; J3105; J7120; Z7610; 36415; 96360; 96361; 96372; G0463

== ENCOUNTER 2017-02-13 10:09 | Inpatient (IN) | payer OTHER ==
[2017-02-13 10:28] VITALS: BP 124/67; PULSE 69; RESP 18
[2017-02-13] MEDS ORDERED: OXYTOCIN 30 UNITS/LR 500 ML IV SCH ×3 (11:00)
[2017-02-13] MEDS ORDERED: IBUPROFEN 600 MG TAB PO PRN (11:00)
[2017-02-13] MEDS ORDERED: MISOPROSTOL 200 MCG TAB PR PRN (11:00)
[2017-02-13] MEDS ORDERED: BUTORPHANOL 2 MG INJ IV PRN ×2 (11:00)
[2017-02-13] MEDS ORDERED: LIDOCAINE 1% (MPF) 30 ML INJ INJ PRN (11:00)
[2017-02-13] MEDS ORDERED: CARBOPROST 250 MCG INJ IM PRN (11:00)
[2017-02-13] MEDS ORDERED: LACTATED RINGER'S 1,000 ML IV PRN (11:00)
[2017-02-13] MEDS ORDERED: AMPICILLIN 2 GM/NS (PMX) 100 ML IV ONE (11:00)
[2017-02-13] MEDS ORDERED: METHYLERGONOVINE 0.2 MG INJ IM PRN (11:00)
[2017-02-13] MEDS ORDERED: OXYTOCIN 30 UNITS/LR 500 ML IV PRN (11:00)
[2017-02-13] MEDS: LACTATED RINGER'S 1,000 ML IV SCH ×2 (11:36→18:45)
[2017-02-13 12:28] LABS: ADD SCAN DIFF NO
--- NOTE | 2017-02-13 12:36 | TRIAGE ---
OB Triage Datetime Report Generated by CPN: 02/13/2017 12:35 Datetime: 02/13/2017 11:55 Assessment Type: Admission Assessment Datetime: 02/13/2017 11:52 Assessment Type: Admission Assessment Vaginal Bleeding: None Maternal Assessment Level of Consciousness: Fully Conscious Headache: Denies Blurred Vision: No Respiratory Effort: Unlabored; Regular Rhythm; Equal Expansion Breath Sounds, Left: Clear and Equal Breath Sounds, Right: Clear and Equal Nausea/Vomiting: Denies RUQ Epigastric Pain: Denies Lower Extremities Edema: None Degree: None Upper Extremities Edema: None Degree: None Facial Edema: None Fall Risk Assessment History of Falling: (0) No Secondary Diagnosis: (0) No Ambulatory Aid: (0) Bedrest/Nurse Assist IV Therapy: (20) Yes (Annotations: INFUSING LR @125ML/HR, WITH AMPICILLIN IVPB) Gait: (0) Normal/Bedrest/Immobile Mental Status: (0) Oriented to Own Ability Fall Score: 20 Fall Risk Score Definition: No Risk: No action required Pain Assessment Pain Scale: 6 Pain Presence: Intermittent Pain Type: Contraction Pain Location: Abdomen; Back Membrane Status: Ruptured Membranes Ruptured Date/Time: 02/13/2017 07:50 Membranes Rupture Method: Spontaneous Amniotic Fluid Color: Clear Amniotic Fluid Amount: Moderate Amniotic Fluid Odor: Normal Pool: Positive Datetime: 02/13/2017 10:24 Membrane Status: Ruptured Membranes Rupture Method: Spontaneous Amniotic Fluid Color: Clear Amniotic Fluid Amount: Moderate Amniotic Fluid Odor: Normal Pool: Positive Datetime: 02/13/2017 10:23 Stage of : OB Triage Assessment Type: Triage Maternal Assessment Level of Consciousness: Fully Conscious Headache: Denies Blurred Vision: No Respiratory Effort: Unlabored; Regular Rhythm; Equal Expansion Breath Sounds, Left: Clear and Equal Breath Sounds, Right: Clear and Equal Nausea/Vomiting: Denies RUQ Epigastric Pain: Denies Lower Extremities Edema: None Degree: None Upper Extremities Edema: None Degree: None Facial Edema: None Temperature Route: Oral Fall Risk Assessment History of Falling: (0) No Secondary Diagnosis: (0) No Ambulatory Aid: (0) Bedrest/Nurse Assist IV Therapy: (0) No Gait: (0) Normal/Bedrest/Immobile Mental Status: (0) Oriented to Own Ability Fall Score: 0 Fall Risk Score Definition: No Risk: No action required Pain Assessment Pain Scale: 6 Pain Presence: Intermittent Pain Type: Contraction Pain Location: Abdomen Exam By: TANGELA Presentation 'A': Cephalic Datetime: 02/13/2017 10:21 Time of Arrival: 02/13/2017 09:45 EGA: 36.2 Arrived By: Wheelchair Arrived From: Home Chief Complaint: SROM [id number] Movement: Present Contractions: Occasional Contractions: 929 Rupture of Membranes: Ruptured Vaginal Bleeding: Normal Show Vaginal Discharge: Present Recent Sexual Intercouse: Denies Abdominal Trauma: Not Applicable Patient Complaints: Contractions; Other Time Provider Notified: 02/13/2017 10:30 Provider Notified: DR. SINGH Initial Plan: EFM x2, SVE Datetime: 01/30/2017 08:22 Labor Evaluation Frequency: 0 Monitor Mode: External Resting Tone [place]: Relaxed Heart Rate FHR Baseline Rate: 145 Monitor Mode: External US Variability: Moderate 6-25 bpm Accelerations: 15X15 Decelerations: None Category: Category I Pain Assessment Pain Scale: 0 Pain Presence: None/Denies Pain Type: N/A Pain Goal: 3 Pain Relief Measures: Comfort Measures Datetime: 01/30/2017 07:25 Labor Evaluation Frequency: 0 Monitor Mode: External Resting Tone [place]: Relaxed Heart Rate FHR Baseline Rate: 135 Monitor Mode: External US Pain Assessment Pain Scale: 3 Pain Presence: Intermittent Pain Type: Cramping Pain Location: Abdomen Pain Goal: 3 Datetime: 01/30/2017 07:01 Monitor Mode: External Quality: Mild Pattern: Normal: <= 5 Contractions in 10 Minutes Resting Tone [place]: Relaxed Heart Rate FHR Baseline Rate: 120 Monitor Mode: External US Variability: Moderate 6-25 bpm Accelerations: 15X15 Decelerations: None Category: Category I Datetime: 01/30/2017 06:00 Stage of : OB Triage Labor Evaluation Frequency: irregular Monitor Mode: External Duration (sec)2399: 60-80 Quality: Mild Pattern: Normal: <= 5 Contractions in 10 Minutes Resting Tone [place]: Relaxed Heart Rate FHR Baseline Rate: 115 Monitor Mode: External US Variability: Moderate 6-25 bpm Accelerations: 15X15 Decelerations: None Category: Category I Datetime: 01/30/2017 05:00 Stage of : OB Triage Labor Evaluation Frequency: 1.5-3.5 Monitor Mode: External Duration (sec)2399: 70-110 Quality: Moderate Pattern: Normal: <= 5 Contractions in 10 Minutes Resting Tone [place]: Relaxed Heart Rate FHR Baseline Rate: 110 Monitor Mode: External US Variability: Moderate 6-25 bpm Accelerations: 15X15 Decelerations: None Category: Category I Datetime: 01/30/2017 04:14 Vaginal Exam Dilatation (cms): 1.0 Effacement (%): 50 Station: -4 Exam By: CH Membrane Status: Intact Vaginal Bleeding: None Datetime: 01/30/2017 04:00 Stage of : OB Triage Labor Evaluation Frequency: 2-4.5 Monitor Mode: External Duration (sec)2399: 70-90 Quality: Moderate Pattern: Normal: <= 5 Contractions in 10 Minutes Resting Tone [place]: Relaxed Heart Rate FHR Baseline Rate: 110 Monitor Mode: External US Variability: Moderate 6-25 bpm Accelerations: 15X15 Decelerations: None Category: Category I Datetime: 01/30/2017 02:55 Assessment Type: Triage Maternal Assessment Level of Consciousness: Fully Conscious DTR's/Clonus: DTRs 2+; No Clonus Headache: Denies Blurred Vision: No Respiratory Effort: Unlabored Nausea/Vomiting: Denies RUQ Epigastric Pain: Denies Lower Extremities Edema: None Degree: None Upper Extremities Edema: None Degree: None Facial Edema: None Fall Risk Assessment History of Falling: (0) No Secondary Diagnosis: (0) No Ambulatory Aid: (0) Bedrest/Nurse Assist IV Therapy: (0) No Gait: (0) Normal/Bedrest/Immobile Mental Status: (0) Oriented to Own Ability Fall Score: 0 Fall Risk Score Definition: No Risk: No action required Datetime: 01/30/2017 02:54 Time of Arrival: 01/30/2017 02:27 EGA: 34.2 Arrived By: Wheelchair Arrived From: Home Chief Complaint: UC's Movement: Present Contractions: Irregular Rupture of Membranes: Denies Vaginal Bleeding: None Vaginal Discharge: Present Recent Sexual Intercouse: Denies Abdominal Trauma: Not Applicable Patient Complaints: Contractions; Cramping; Back Pain Time Provider Notified: 01/30/2017 03:12 Provider Notified: YAHAIRA Initial Plan: NST, BPP, TERB, U/A, PROCARDIA Datetime: 01/30/2017 02:27 Stage of : OB Triage Datetime: 01/13/2017 10:44 Labor Evaluation Frequency: OCCASIONAL Monitor Mode: External Duration (sec)2399: 50 TO 60 Pattern: Normal: <= 5 Contractions in 10 Minutes Resting Tone [place]: Relaxed Heart Rate FHR Baseline Rate: 120 Monitor Mode: External US FHR Baseline Changes: No Baseline Change Variability: Moderate 6-25 bpm Accelerations: 15X15 Decelerations: None Category: Category I Datetime: 01/13/2017 10:00 Labor Evaluation Frequency: 0 Monitor Mode: External Pattern: Normal: <= 5 Contractions in 10 Minutes Resting Tone [place]: Relaxed Heart Rate FHR Baseline Rate: 120 Monitor Mode: External US FHR Baseline Changes: No Baseline Change Variability: Moderate 6-25 bpm Accelerations: 15X15 Decelerations: None Category: Category I Datetime: 01/13/2017 08:00 Maternal Assessment Level of Consciousness: Fully Conscious DTR's/Clonus: DTRs 2+; No Clonus Headache: Denies Breath Sounds, Left: Clear and Equal Breath Sounds, Right: Clear and Equal Nausea/Vomiting: Denies RUQ Epigastric Pain: Denies Temperature Route: Oral Labor Evaluation Frequency: 0 Monitor Mode: External Pattern: Normal: <= 5 Contractions in 10 Minutes Resting Tone [place]: Relaxed Heart Rate FHR Baseline Rate: 110 Monitor Mode: External US FHR Baseline Changes: No Baseline Change Variability: Moderate 6-25 bpm Accelerations: 15X15 Decelerations: None Category: Category I Datetime: 01/13/2017 07:37 Assessment Type: Ongoing Assessment Blurred Vision: No Respiratory Effort: Unlabored; Regular Rhythm; Equal Expansion Lower Extremities Edema: None Degree: None Upper Extremities Edema: None Degree: None Facial Edema: None Fall Risk Assessment History of Falling: (0) No Secondary Diagnosis: (0) No Ambulatory Aid: (0) Bedrest/Nurse Assist Gait: (0) Normal/Bedrest/Immobile Mental Status: (0) Oriented to Own Ability Datetime: 01/13/2017 06:40 Stage of : Antepartum Labor Evaluation Frequency: Occassional Monitor Mode: External Duration (sec)2399: 40-70 Quality: Mild Pattern: Normal: <= 5 Contractions in 10 Minutes Resting Tone [place]: Relaxed Heart Rate FHR Baseline Rate: 125 Monitor Mode: External US FHR Baseline Changes: No Baseline Change Variability: Moderate 6-25 bpm Accelerations: 15X15 Decelerations: None Category: Category I Datetime: 01/13/2017 06:25 Stage of : Antepartum Maternal Assessment Level of Consciousness: Fully Conscious Headache: Denies Blurred Vision: No Nausea/Vomiting: Denies RUQ Epigastric Pain: Denies Facial Edema: None Pain Assessment Pain Scale: 0 Pain Presence: None/Denies Pain Type: N/A Pain Goal: 0 Pain Relief Measures: Comfort Measures Pain Assessment Comments: patient denies pain Datetime: 01/13/2017 05:06 Stage of : Antepartum Headache: Denies Nausea/Vomiting: Denies Pain Assessment Pain Scale: 0 Pain Presence: None/Denies Pain Type: N/A Pain Goal: 0 Pain Relief Measures: Comfort Measures Pain Assessment Comments: patient denies pain Datetime: 01/13/2017 05:00 Stage of : Antepartum Labor Evaluation Frequency: 1/hour Monitor Mode: External Duration (sec)2399: 40 Quality: Mild Pattern: Normal: <= 5 Contractions in 10 Minutes Resting Tone [place]: Relaxed Heart Rate FHR Baseline Rate: 130 Monitor Mode: External US Variability: Moderate 6-25 bpm Accelerations: 15X15 Decelerations: None Category: Category I Datetime: 01/13/2017 04:00 Stage of : Antepartum Maternal Assessment Level of Consciousness: Fully Conscious Labor Evaluation Frequency: 2/hour Monitor Mode: External Duration (sec)2399: 40-80 Quality: Mild Pattern: Normal: <= 5 Contractions in 10 Minutes Resting Tone [place]: Relaxed Heart Rate FHR Baseline Rate: 130 Monitor Mode: External US Variability: Moderate 6-25 bpm Accelerations: 15X15 Decelerations: None Comments: Periods of marked variability Datetime: 01/13/2017 03:00 Stage of : Antepartum Maternal Assessment Level of Consciousness: Fully Conscious Labor Evaluation Frequency: 2/hour Monitor Mode: External Quality: Mild Pattern: Normal: <= 5 Contractions in 10 Minutes Resting Tone [place]: Relaxed Heart Rate FHR Baseline Rate: 130 Monitor Mode: External US Variability: Moderate 6-25 bpm Accelerations: 15X15 Decelerations: None Category: Category I Datetime: 01/13/2017 02:42 Pain Assessment Pain Scale: 0 Pain Presence: None/Denies Pain Type: N/A Pain Goal: 0 Pain Relief Measures: Comfort Measures Pain Assessment Comments: patient denies pain Datetime: 01/13/2017 02:00 Stage of : Antepartum Maternal Assessment Level of Consciousness: Fully Conscious Labor Evaluation Frequency: Occassional Monitor Mode: External Duration (sec)2399: 40-60 Quality: Mild Pattern: Normal: <= 5 Contractions in 10 Minutes Resting Tone [place]: Relaxed Heart Rate FHR Baseline Rate: 135 Monitor Mode: External US Variability: Moderate 6-25 bpm Accelerations: 15X15 Decelerations: None Comments: Periods of marked variability Datetime: 01/13/2017 01:00 Stage of : Antepartum Maternal Assessment Level of Consciousness: Fully Conscious Labor Evaluation Frequency: 2/hour Monitor Mode: External Duration (sec)2399: 60 Quality: Mild Pattern: Normal: <= 5 Contractions in 10 Minutes Resting Tone [place]: Relaxed Heart Rate FHR Baseline Rate: 135 Monitor Mode: External US Variability: Moderate 6-25 bpm Accelerations: 15X15 Decelerations: None Category: Category I Datetime: 01/13/2017 00:00 Maternal Assessment Level of Consciousness: Fully Conscious Headache: Denies Blurred Vision: No Nausea/Vomiting: Denies Facial Edema: None Labor Evaluation Frequency: 2/hour Monitor Mode: External Duration (sec)2399: 30-50 Quality: Mild Pattern: Normal: <= 5 Contractions in 10 Minutes Resting Tone [place]: Relaxed Heart Rate FHR Baseline Rate: 135 Monitor Mode: External US FHR Baseline Changes: No Baseline Change Variability: Moderate 6-25 bpm Accelerations: 15X15 Decelerations: None Category: Category I Pain Presence: Constant Pain Location: Back Pain Goal: 0 Pain Relief Measures: Comfort Measures Pain Assessment Comments: patient states her back pain is tolerable Datetime: 01/12/2017 23:00 Stage of : Antepartum Maternal Assessment Level of Consciousness: Fully Conscious Headache: Denies Nausea/Vomiting: Denies Labor Evaluation Frequency: 1/hour Monitor Mode: External Duration (sec)2399: 50 Quality: Mild Pattern: Normal: <= 5 Contractions in 10 Minutes Resting Tone [place]: Relaxed Heart Rate FHR Baseline Rate: 140 Monitor Mode: External US FHR Baseline Changes: No Baseline Change Variability: Moderate 6-25 bpm Accelerations: 15X15 Decelerations: None Category: Category I Pain Assessment Pain Scale: 0 Pain Presence: None/Denies Pain Type: N/A Pain Goal: 0 Pain Relief Measures: Comfort Measures Pain Assessment Comments: patient states she has back pain that is tolerable at this time Datetime: 01/12/2017 22:45 Assessment Type: Admission Assessment Maternal Assessment Level of Consciousness: Fully Conscious DTR's/Clonus: DTRs 2+; No Clonus Headache: Denies Blurred Vision: No Respiratory Effort: Unlabored; Regular Rhythm; Equal Expansion Breath Sounds, Left: Clear and Equal Breath Sounds, Right: Clear and Equal Nausea/Vomiting: Denies RUQ Epigastric Pain: Denies Lower Extremities Edema: None Degree: None Upper Extremities Edema: None Degree: None Facial Edema: None Fall Risk Assessment History of Falling: (0) No Secondary Diagnosis: (0) No Ambulatory Aid: (0) Bedrest/Nurse Assist IV Therapy: (0) No Gait: (0) Normal/Bedrest/Immobile Mental Status: (0) Oriented to Own Ability Fall Score: 0 Fall Risk Score Definition: No Risk: No action required Datetime: 01/12/2017 22:00 Stage of : Antepartum Maternal Assessment Level of Consciousness: Fully Conscious Headache: Denies Nausea/Vomiting: Denies Labor Evaluation Frequency: 0/hour Monitor Mode: External Pattern: Normal: <= 5 Contractions in 10 Minutes Resting Tone [place]: Relaxed Heart Rate FHR Baseline Rate: 145 Monitor Mode: External US FHR Baseline Changes: No Baseline Change Variability: Moderate 6-25 bpm Accelerations: 15X15 Decelerations: None Category: Category I Pain Assessment Pain Scale: 0 Pain Presence: None/Denies Pain Type: N/A Pain Goal: 0 Pain Relief Measures: Comfort Measures Pain Assessment Comments: patient denies pain Datetime: 01/12/2017 21:10 FHR Baseline Changes: Tachycardia Comments: About [address] Cuevas informed. Datetime: 01/12/2017 21:00 Stage of : Antepartum Maternal Assessment Level of Consciousness: Fully Conscious Headache: Denies Nausea/Vomiting: Denies Labor Evaluation Frequency: Irregular Monitor Mode: External Duration (sec)2399: 30-70 Quality: Mild Pattern: Normal: <= 5 Contractions in 10 Minutes Resting Tone [place]: Relaxed Heart Rate FHR Baseline Rate: 195 Monitor Mode: External US FHR Baseline Changes: Tachycardia Variability: Moderate 6-25 bpm Accelerations: 15X15 Decelerations: None Pain Assessment Pain Scale: 0 Pain Presence: None/Denies Pain Type: N/A Pain Goal: 0 Pain Relief Measures: Comfort Measures Pain Assessment Comments: patient denies pain Datetime: 01/12/2017 20:51 Stage of : Antepartum Datetime: 01/12/2017 20:00 Stage of : Antepartum Maternal Assessment Level of Consciousness: Fully Conscious Headache: Denies Blurred Vision: No Nausea/Vomiting: Denies RUQ Epigastric Pain: Denies Facial Edema: None Labor Evaluation Frequency: Irregular Monitor Mode: Internal Duration (sec)2399: 30-60 Quality: Mild Pattern: Normal: <= 5 Contractions in 10 Minutes Resting Tone [place]: Relaxed Heart Rate FHR Baseline Rate: 135 Monitor Mode: External US FHR Baseline Changes: No Baseline Change Variability: Moderate 6-25 bpm Accelerations: 15X15 Decelerations: None Category: Category I Pain Presence: Constant Pain Location: Back Pain Relief Measures: Comfort Measures Pain Assessment Comments: Patient c/o back pain - had IV tylenol earlier - patient states that the pain is manageable Membrane Status: Intact Datetime: 01/12/2017 19:32 Maternal Assessment Level of Consciousness: Fully Conscious Nausea/Vomiting: Denies Pain Assessment Pain Scale: 0 Pain Presence: None/Denies Pain Type: N/A Pain Goal: 0 Pain Relief Measures: Comfort Measures Pain Assessment Comments: patient denies pain at this time Datetime: 01/12/2017 19:30 Assessment Type: Ongoing Assessment Maternal Assessment Level of Consciousness: Fully Conscious DTR's/Clonus: DTRs 2+; No Clonus Headache: Denies Blurred Vision: No Respiratory Effort: Unlabored; Regular Rhythm; Equal Expansion Breath Sounds, Left: Clear and Equal Breath Sounds, Right: Clear and Equal Nausea/Vomiting: Denies RUQ Epigastric Pain: Denies Lower Extremities Edema: None Degree: None Upper Extremities Edema: None Degree: None Facial Edema: None Fall Risk Assessment History of Falling: (0) No Secondary Diagnosis: (0) No Ambulatory Aid: (0) Bedrest/Nurse Assist IV Therapy: (0) No Gait: (0) Normal/Bedrest/Immobile Mental Status: (0) Oriented to Own Ability Fall Score: 0 Fall Risk Score Definition: No Risk: No action required Datetime: 01/12/2017 19:27 Stage of : Antepartum Datetime: 01/12/2017 18:54 Labor Evaluation Frequency: 0 Monitor Mode: External Duration (sec)2399: 0 Pattern: Normal: <= 5 Contractions in 10 Minutes Resting Tone [place]: Relaxed Contraction Comments: DENIES FEELING ANY UC'S Heart Rate FHR Baseline Rate: 140 Monitor Mode: External US FHR Baseline Changes: No Baseline Change Variability: Moderate 6-25 bpm Accelerations: 15X15 Decelerations: None Category: Category I Datetime: 01/12/2017 17:59 Labor Evaluation Frequency: OCCASIONAL Monitor Mode: External Duration (sec)2399: 60-90 Pattern: Normal: <= 5 Contractions in 10 Minutes Resting Tone [place]: Relaxed Heart Rate FHR Baseline Rate: 140 Monitor Mode: External US FHR Baseline Changes: No Baseline Change Variability: Moderate 6-25 bpm Accelerations: 15X15 Decelerations: None Category: Category I Datetime: 01/12/2017 16:50 Labor Evaluation Frequency: 0 Monitor Mode: External Duration (sec)2399: 0 Pattern: Normal: <= 5 Contractions in 10 Minutes Resting Tone [place]: Relaxed Heart Rate FHR Baseline Rate: 140 Monitor Mode: External US FHR Baseline Changes: No Baseline Change Variability: Moderate 6-25 bpm Accelerations: 15X15 Decelerations: None Category: Category I Datetime: 01/12/2017 15:57 Labor Evaluation Frequency: 0 Monitor Mode: External Duration (sec)2399: 0 Pattern: Normal: <= 5 Contractions in 10 Minutes Heart Rate FHR Baseline Rate: 150 FHR Baseline Changes: No Baseline Change Variability: Moderate 6-25 bpm Accelerations: 15X15 Decelerations: None Category: Category I Datetime: 01/12/2017 15:00 Labor Evaluation Frequency: 0 Monitor Mode: External Duration (sec)2399: 0 Pattern: Normal: <= 5 Contractions in 10 Minutes Resting Tone [place]: Relaxed Heart Rate FHR Baseline Rate: 140 Monitor Mode: External US FHR Baseline Changes: No Baseline Change Variability: Moderate 6-25 bpm Accelerations: 15X15 Decelerations: None Category: Category I Datetime: 01/12/2017 13:59 Labor Evaluation Frequency: 0 Monitor Mode: External Duration (sec)2399: 0 Pattern: Normal: <= 5 Contractions in 10 Minutes Resting Tone [place]: Relaxed Heart Rate FHR Baseline Rate: 140 Monitor Mode: External US FHR Baseline Changes: No Baseline Change Variability: Moderate 6-25 bpm Accelerations: 15X15 Decelerations: None Category: Category I Comments: PT SITTING UP EATING LUNCH Datetime: 01/12/2017 12:56 Labor Evaluation Frequency: 0 Monitor Mode: External Duration (sec)2399: 0 Pattern: Normal: <= 5 Contractions in 10 Minutes Resting Tone [place]: Relaxed Heart Rate FHR Baseline Rate: 135 Monitor Mode: External US FHR Baseline Changes: No Baseline Change Variability: Moderate 6-25 bpm Accelerations: 15X15 Decelerations: None Category: Category I Datetime: 01/12/2017 11:59 Labor Evaluation Frequency: 0 Monitor Mode: External Duration (sec)2399: 0 Pattern: Normal: <= 5 Contractions in 10 Minutes Resting Tone [place]: Relaxed Heart Rate FHR Baseline Rate: 140 Monitor Mode: External US FHR Baseline Changes: No Baseline Change Variability: Moderate 6-25 bpm Accelerations: 15X15 Decelerations: None Category: Category I Datetime: 01/12/2017 11:00 Labor Evaluation Frequency: 2 NOTED IN ONE HOUR Monitor Mode: External Duration (sec)2399: 60-110 Pattern: Normal: <= 5 Contractions in 10 Minutes Resting Tone [place]: Relaxed Heart Rate FHR Baseline Rate: 135 Monitor Mode: External US FHR Baseline Changes: No Baseline Change Variability: Moderate 6-25 bpm Accelerations: 15X15 Decelerations: None Category: Category I Datetime: 01/12/2017 09:59 Labor Evaluation Frequency: ONE NOTED IN ONE HOUR Monitor Mode: External Duration (sec)2399: 60 Pattern: Normal: <= 5 Contractions in 10 Minutes Heart Rate FHR Baseline Rate: 140 Monitor Mode: External US FHR Baseline Changes: No Baseline Change Variability: Moderate 6-25 bpm Accelerations: 15X15 Decelerations: None Category: Category I Datetime: 01/12/2017 09:00 Comments: LOSS OF CONTACT. Datetime: 01/12/2017 08:59 Labor Evaluation Frequency: ONE NOTED IN ONE HOUR Monitor Mode: External Duration (sec)2399: 80 Pattern: Normal: <= 5 Contractions in 10 Minutes Resting Tone [place]: Relaxed Heart Rate FHR Baseline Rate: 130 Monitor Mode: External US FHR Baseline Changes: No Baseline Change Variability: Moderate 6-25 bpm Accelerations: 15X15 Decelerations: None Category: Category I Datetime: 01/12/2017 07:56 Labor Evaluation Frequency: 0 Monitor Mode: External Duration (sec)2399: 0 Pattern: Normal: <= 5 Contractions in 10 Minutes Resting Tone [place]: Relaxed Contraction Comments: NONE NOTED AT THIS TIME. ABDOMEN SOFT TO PALPATION. PT DENIES FEELING ANY U C'S Heart Rate FHR Baseline Rate: 135 Monitor Mode: External US FHR Baseline Changes: No Baseline Change Variability: Moderate 6-25 bpm Accelerations: 15X15 Decelerations: None Category: Category I Datetime: 01/12/2017 07:51 Assessment Type: Ongoing Assessment Maternal Assessment Level of Consciousness: Fully Conscious DTR's/Clonus: DTRs 2+; No Clonus Headache: Denies Blurred Vision: No Respiratory Effort: Unlabored; Regular Rhythm; Equal Expansion Breath Sounds, Left: Clear and Equal Breath Sounds, Right: Clear and Equal Nausea/Vomiting: Denies RUQ Epigastric Pain: Denies Lower Extremities Edema: None Degree: None Upper Extremities Edema: None Degree: None Facial Edema: None Fall Risk Assessment History of Falling: (0) No Secondary Diagnosis: (0) No Ambulatory Aid: (0) Bedrest/Nurse Assist IV Therapy: (20) Yes Gait: (0) Normal/Bedrest/Immobile Mental Status: (0) Oriented to Own Ability Fall Score: 20 Fall Risk Score Definition: No Risk: No action required Datetime: 01/12/2017 07:47 Pain Presence: None/Denies Pain Type: N/A Datetime: 01/12/2017 06:00 Monitor Mode: External Resting Tone [place]: Relaxed Contraction Comments: NO UC'S NOTED Heart Rate FHR Baseline Rate: 130 Monitor Mode: External US Variability: Moderate 6-25 bpm Accelerations: 15X15 Decelerations: None Category: Category I Datetime: 01/12/2017 05:02 Nausea/Vomiting: Present Comments: US/toco adjusted d/t pt c/o tightness. Pain Presence: Intermittent Pain Type: Contraction Pain Location: Abdomen; Back Pain Assessment Comments: Pt states that she is "starting to feel contractions again." Datetime: 01/12/2017 05:00 Monitor Mode: External Resting Tone [place]: Relaxed Contraction Comments: NO UC'S NOTED Heart Rate FHR Baseline Rate: 135 Monitor Mode: External US Variability: Moderate 6-25 bpm Accelerations: 15X15 Decelerations: None Category: Category I Datetime: 01/12/2017 03:00 Labor Evaluation Frequency: OCCASIONAL Monitor Mode: External Duration (sec)2399: 50-60 Quality: Mild Pattern: Normal: <= 5 Contractions in 10 Minutes Resting Tone [place]: Relaxed Heart Rate FHR Baseline Rate: 140 Monitor Mode: External US FHR Baseline Changes: No Baseline Change Variability: Moderate 6-25 bpm Accelerations: 15X15 Decelerations: None Category: Category I Datetime: 01/12/2017 02:00 Stage of : Antepartum Labor Evaluation Frequency: X3 Monitor Mode: External Duration (sec)2399: 50-60 Quality: Mild Pattern: Normal: <= 5 Contractions in 10 Minutes Resting Tone [place]: Relaxed Heart Rate FHR Baseline Rate: 140 Monitor Mode: External US FHR Baseline Changes: No Baseline Change Variability: Moderate 6-25 bpm Accelerations: 15X15 Decelerations: None Category: Category I Datetime: 01/12/2017 01:00 Labor Evaluation Frequency: occasional Monitor Mode: External Duration (sec)2399: 30-50 Quality: Mild Pattern: Normal: <= 5 Contractions in 10 Minutes Resting Tone [place]: Relaxed Heart Rate FHR Baseline Rate: 150 Monitor Mode: External US FHR Baseline Changes: No Baseline Change Variability: Moderate 6-25 bpm Accelerations: 15X15 Decelerations: None Category: Category I Datetime: 01/12/2017 00:32 Stage of : Labor Pain Goal: SLEEPING Datetime: 01/12/2017 00:00 Labor Evaluation Frequency: occasional Monitor Mode: External Duration (sec)2399: 30-50 Quality: Mild Pattern: Normal: <= 5 Contractions in 10 Minutes Resting Tone [place]: Relaxed Heart Rate FHR Baseline Rate: 150 Monitor Mode: External US FHR Baseline Changes: No Baseline Change Variability: Moderate 6-25 bpm Accelerations: 15X15 Decelerations: None Category: Category I Datetime: 01/11/2017 23:45 Stage of : Antepartum Pain Goal: 0 Datetime: 01/11/2017 19:00 EGA: 31.4 Datetime: 01/11/2017 18:45 Fall Score: 0 Fall Risk Score Definition: No Risk: No action required Datetime: 01/08/2017 19:32 Fall Score: 20 Fall Risk Score Definition: No Risk: No action required Datetime: 01/08/2017 02:01 Fall Score: 0 Fall Risk Score Definition: No Risk: No action required Datetime: 01/07/2017 23:00 Fall Score: 0 Fall Risk Score Definition: No Risk: No action required Datetime: 01/07/2017 22:52 EGA: 31.1
[2017-02-13 12:37] LABS: ABNORMAL IP MESSAGE 1; BASOPHILS % 0.3 % (0.0-2.0); EOSINOPHILS # 0.1 10^3/ul (0.0-0.5); EOSINOPHILS % 0.9 % (0.0-7.0); HEMATOCRIT 28.9 % (37.0-47.0); HEMOGLOBIN 8.4 g/dl (12.0-16.0); LYMPHOCYTES % 28.7 % (18.0-55.0); MEAN CORPUSCULAR HEMOGLOBIN 19.8 pg (29.0-33.0); MEAN CORPUSCULAR HGB CONC 29.1 g/dl (32.0-37.0); MONOCYTE # 0.4 10^3/ul (0.3-0.9); MONOCYTES % 5.4 % (0.0-13.0); NEUTROPHIL # 4.5 10^3/ul (1.6-7.5); NEUTROPHILS % 63.8 % (30.0-74.0); PLATELET COUNT 223 10^3/UL (140-415); RED BLOOD COUNT 4.25 10^6/ul (4.20-5.40); RED CELL DISTRIBUTION WIDTH 19.4 % (11.5-14.5)
[2017-02-13 12:54] LABS: INR 0.95; PROTIME 12.7 Sec (12.2-14.2)
[2017-02-13 12:55] LABS: PARTIAL THROMBOPLASTIN TIME 26.5 Sec (25.0-35.0)
[2017-02-13] MEDS: AMPICILLIN 1 GM/NS (PMX) 50 ML IV SCH ×2 (14:53→19:00)
[2017-02-13 15:43] LABS: BARBITURATES NEGATIVE (NEGATIVE); BENZODIAZEPINES NEGATIVE (NEGATIVE); CANNABINOIDS POSITIVE (NEGATIVE); COCAINE NEGATIVE (NEGATIVE); OPIATES NEGATIVE (NEGATIVE)
--- NOTE | 2017-02-13 18:01 | LDN ---
Date/Time of Note Date/Time of Note DATE: 02/13/17 TIME: 17:59 Delivery Summary Normal spontaneous vaginal delivery of a baby girl from OA position cord clamped after stopped pulsation placenta spontaneous expulsion inspected complete blood loss 250 cc no perineal laceration Weeks of Gestation 38 weeks 5/7 days Placenta Delivered: Spontaneously Meconium: none Episiotomy: No Laceration repair: None Anesthesia type: None Sponge & Needle done & correct: Yes All needle counts correct: Yes Any foreign bodies felt in the: No Problems: Infant Delivery Information Sex Sex: female Apgars 1 Minute: 9 5 Minute: 9 Suctioning Nose & mouth suctioned at delbert: Yes Delee suction performed: No Umbilical Cord Umbilical cord with: 3 Vessels Cord Blood was obtained: Yes GLENNA SINGH MD February 13, 2017 18:01
--- NOTE | 2017-02-13 18:05 | HP ---
Date/Time of Note Date/Time of Note DATE: 02/13/17 TIME: 18:02 OB - History Hx of Present Free Text/Dictation 9 21 years old female T1 IA 1 L1 EDC February 22 admitted to [facility] with a spontaneous rupture of membrane in labor on admission cervical dilatation 1-2 cm 50% thank you at -3 station patient was having contraction every 7-10 minutes require augmentation Chief Complaint: Premature rupture of membrane early labor Estimated Due Date: February 21, 2017 : 4 Para: 1 Spontaneous : 1 Therapeutic : 2 Care: Good Care Ultrasounds: Normal mid trimester US Obstetrical Complications: None Medical Complications: None Past Family/Social History * Past Medical, Surgical, Family and Obstetric Histories reviewed from chart. Rubella: immune RPR/VDRL: Negative GBS Status: Negative HBsAG: Negative OB Admission Exam Vital Signs Vital Signs Vital Signs Date Time Temp Pulse Resp B/P Pulse Ox O2 Delivery O2 Flow Rate FiO2 02/13/17 10:28 98.2 69 18 124/67 97 Room Air Last 72 hours Lab Results CBC & BMP 02/13/17 11:30 GLENNA SINGH MD February 13, 2017 18:04
[2017-02-13] MEDS ORDERED: ACETAMINOPHEN/CODEINE #3 TAB PO PRN ×2 (20:30)
[2017-02-13] MEDS ORDERED: DIBUCAINE 1% 30 GM OINT PR PRN (20:30)
[2017-02-13] MEDS ORDERED: BENZOCAINE 20% 56 ML SPRAY TOP PRN (20:30)
[2017-02-13] MEDS ORDERED: WITCH HAZEL/GLYCERIN PAD PR PRN (20:30)
[2017-02-13] MEDS ORDERED: LANOLIN 7 GM TUBE TOP PRN (20:30)
[2017-02-13] MEDS ORDERED: OXYCODONE/ASPIRIN (4.88/325) TAB PO PRN ×2 (20:30)
[2017-02-13] MEDS ORDERED: ONDANSETRON 4 MG INJ IV PRN (20:30)
[2017-02-13] MEDS ORDERED: ACETAMINOPHEN 325 MG TAB PO PRN (20:30)
[2017-02-13 20:55] VITALS: BP 110/55; PULSE 57; RESP 18
[2017-02-13] MEDS: SENNA/DOCUSATE NA (8.6MG/50MG) TAB PO SCH (21:57)
[2017-02-13] MEDS: OXYTOCIN 30 UNITS/LR 500 ML IV SCH (22:23)
[2017-02-14] MEDS: OXYTOCIN 30 UNITS/LR 500 ML IV SCH (00:06)
[2017-02-14] MEDS: IBUPROFEN 600 MG TAB PO SCH ×4 (00:17→17:44)
[2017-02-14 03:53] VITALS: BP 103/55; PULSE 55; RESP 18
[2017-02-14 07:56] VITALS: BP 100/55; PULSE 60; RESP 18
[2017-02-14 08:46] LABS: ADD SCAN DIFF NO
[2017-02-14 08:57] LABS: ABNORMAL IP MESSAGE 1; BASOPHILS % 0.1 % (0.0-2.0); EOSINOPHILS # 0.1 10^3/ul (0.0-0.5); EOSINOPHILS % 0.8 % (0.0-7.0); HEMATOCRIT 25.8 % (37.0-47.0); HEMOGLOBIN 7.7 g/dl (12.0-16.0); LYMPHOCYTES # 2.2 10^3/ul (0.8-2.9); LYMPHOCYTES % 22.5 % (18.0-55.0); MEAN CORPUSCULAR HEMOGLOBIN 20.1 pg (29.0-33.0); MEAN CORPUSCULAR HGB CONC 29.8 g/dl (32.0-37.0); MEAN CORPUSCULAR VOLUME 67.4 fl (72.0-104.0); MONOCYTE # 0.7 10^3/ul (0.3-0.9); MONOCYTES % 6.8 % (0.0-13.0); NEUTROPHIL # 6.7 10^3/ul (1.6-7.5); NEUTROPHILS % 69.3 % (30.0-74.0); PLATELET COUNT 199 10^3/UL (140-415); RED BLOOD COUNT 3.83 10^6/ul (4.20-5.40); RED CELL DISTRIBUTION WIDTH 18.7 % (11.5-14.5); WHITE BLOOD COUNT 9.7 10^3/ul (4.8-10.8)
[2017-02-14] MEDS: SENNA/DOCUSATE NA (8.6MG/50MG) TAB PO SCH ×2 (09:25→22:01)
--- NOTE | 2017-02-14 09:58 | PN ---
Date/Time of Note Date/Time of Note DATE: 02/14/17 TIME: 09:57 OB Subjective Subjective Subjective day 1 Afebrile vital signs stable abdomen soft uterus firm lochia normal extremity normal ambulation encouraged Laboratory Tests Test 02/13/17 11:30 02/13/17 14:25 02/14/17 08:02 White Blood Count 7.010^3/ul 9.710^3/ul Red Blood Count 4.2510^6/ul 3.8310^6/ul Hemoglobin 8.4g/dl 7.7g/dl Hematocrit 28.9% 25.8% Mean Corpuscular Volume 68.0fl 67.4fl Mean Corpuscular Hemoglobin 19.8pg 20.1pg Mean Corpuscular Hemoglobin Concent 29.1g/dl 29.8g/dl Red Cell Distribution Width 19.4% 18.7% Platelet Count 67728^3/UL 11826^3/UL Mean Platelet Volume fl fl Neutrophils % 63.8% 69.3% Lymphocytes % 28.7% 22.5% Monocytes % 5.4% 6.8% Eosinophils % 0.9% 0.8% Basophils % 0.3% 0.1% Nucleated Red Blood Cells % 0.0/100WBC 0.0/100WBC Neutrophils # 4.510^3/ul 6.710^3/ul Lymphocytes # 2.010^3/ul 2.210^3/ul Monocytes # 0.410^3/ul 0.710^3/ul Eosinophils # 0.110^3/ul 0.110^3/ul Basophils # 0.010^3/ul 0.010^3/ul Nucleated Red Blood Cells # 0.010^3/ul 0.010^3/ul Prothrombin Time 12.7Sec Prothrombin Time Ratio 1.0 INR International Normalized Ratio 0.95 Activated Partial Thromboplast Time 26.5Sec Rapid Plasma Reagin NONREACTIVE Hepatitis B Surface Antigen NEGATIVE Urine Opiates Screen NEGATIVE Urine Barbiturates NEGATIVE Urine Amphetamines Screen NEGATIVE Urine Benzodiazepines Screen NEGATIVE Urine Cocaine Screen NEGATIVE Urine Cannabinoids POSITIVE Current Medications Medications (Trade) Dose Ordered Sig/Emery Route PRN Reason Start Time Stop Time Status Last Admin Dose Admin Lactated Ringer's 1,000 ml @ 125 mls/hr Q8H IV 02/13/17 10:45 02/13/17 20:10 DC 02/13/17 11:36 Ampicillin 100 ml @ 100 mls/hr ONCE ONCE IV 02/13/17 11:00 02/13/17 11:59 DC 02/13/17 11:41 Ampicillin 50 ml @ 100 mls/hr Q4H IV 02/13/17 15:00 02/13/17 20:10 DC 02/13/17 14:53 Oxytocin/Lactated Ringer's 500 ml @ 0 mls/hr TITRATE IV 02/13/17 11:00 02/13/17 20:10 DC 02/13/17 14:51 Butorphanol Tartrate (Stadol) 1 mg Q2H PRN IV PAIN 02/13/17 11:00 02/13/17 20:10 DC Butorphanol Tartrate (Stadol) 2 mg Q2H PRN IV PAIN 02/13/17 11:00 02/13/17 20:10 DC 02/13/17 15:52 Lidocaine 30 ml 30 ml ONCE PRN INJ EPISIOTOMY/TEARING 02/13/17 11:00 02/13/17 20:10 DC Oxytocin/Lactated Ringer's 500 ml @ 0 mls/hr ONCE -MAY REPEAT X1 IV 02/13/17 11:00 02/13/17 20:10 DC 02/13/17 18:18 Oxytocin/Lactated Ringer's 500 ml @ 125 mls/hr ONCE IV 02/13/17 11:00 02/13/17 20:10 DC 02/13/17 18:22 Ibuprofen 600 mg 600 mg ONCE PRN PO Mild Pain (Pain Score 1-3) 02/13/17 11:00 02/13/17 20:10 DC 02/13/17 18:35 Lactated Ringer's 1,000 ml @ 2,000 mls/hr Q30M PRN IV PRE-EPIDURAL BOLUS 02/13/17 11:00 02/13/17 20:10 DC Oxytocin/Lactated Ringer's 500 ml @ 0 mls/hr ONCE PRN IV For Hemorrhage Management 02/13/17 11:00 02/13/17 20:10 DC Methylergonovine Maleate (Methergine) 0.2 mg ONCE PRN IM VAGINAL BLEEDING 02/13/17 11:00 02/13/17 20:10 DC Carboprost Tromethamine (Hemabate) 250 mcg ONCE PRN IM VAGINAL BLEEDING 02/13/17 11:00 02/13/17 20:10 DC Misoprostol 1000 mcg 1,000 mcg ONCE PRN NC VAGINAL BLEEDING 02/13/17 11:00 02/13/17 20:10 DC Oxytocin/Lactated Ringer's 500 ml @ 125 mls/hr Q4H IV 02/13/17 20:06 02/14/17 04:05 DC 02/13/17 22:23 Ibuprofen (Motrin) 600 mg Q6 PO 02/14/17 00:00 02/14/17 06:01 Acetaminophen (Tylenol Tab) 650 mg Q4H PRN PO PAIN LEVEL 1-5 02/13/17 20:30 Acetaminophen/ Codeine Phosphate (Tylenol No.3) 1 tab Q4H PRN PO PAIN LEVEL 1-5 02/13/17 20:30 Acetaminophen/ Codeine Phosphate (Tylenol No.3) 2 tab Q4H PRN PO PAIN LEVEL 6-10 02/13/17 20:30 Oxycodone/Aspirin (Percodan) 1 tab Q3H PRN PO PAIN LEVEL 1-5 02/13/17 20:30 Oxycodone/Aspirin (Percodan) 2 tab Q3H PRN PO PAIN LEVEL 6-10 02/13/17 20:30 Ondansetron HCl (Zofran Inj) 4 mg Q6H PRN IV NAUSEA AND/OR VOMITING 02/13/17 20:30 Senna/Docusate Sodium (Senokot-S) 1 tab BID PO 02/13/17 21:00 02/14/17 09:25 Witch Bel[place]/ Glycerin (Tucks Pads) 1 pad BEDSIDE MEDICATION PRN NC HEMORRHOID/EPISIOTMY PAIN 02/13/17 20:30 Benzocaine (Dermoplast [place]) 1 spray BEDSIDE MEDICATION PRN TOP HEMORRHOID/EPISIOTMY PAIN 02/13/17 20:30 Dibucaine (Nupercainal) 1 applic BEDSIDE MEDICATION PRN NC HEMORRHOID/EPISIOTMY PAIN 02/13/17 20:30 Lanolin (Lcj-T-Qmhlqg) 1 applic BEDSIDE MEDICATION PRN TOP BEDSIDE FOR [place]YS[place] TO NIPPLES 02/13/17 20:30 02/13/17 21:57 Measles/Mumps/ Rubella Vaccine Live (Mmr Ii Vaccine) 0.5 ml ONCE ONCE SC* 02/15/17 09:00 02/15/17 09:01 GLENNA SINGH MD February 14, 2017 09:58
[2017-02-14 12:00] VITALS: BP 111/65; PULSE 63; RESP 16
[2017-02-14] MEDS: FERROUS SULFATE (EC) 325 MG TAB PO SCH ×2 (12:49→22:01)
[2017-02-14 16:00] VITALS: BP 110/62; PULSE 64; RESP 16; RESP 18
[2017-02-14 20:00] VITALS: BP 107/55; PULSE 74; RESP 18
[2017-02-15] MEDS: IBUPROFEN 600 MG TAB PO SCH ×3 (00:18→12:28)
[2017-02-15 04:00] VITALS: BP 110/55; PULSE 62; RESP 18
[2017-02-15 08:00] VITALS: BP 108/50; PULSE 63; RESP 18
[2017-02-15] MEDS ORDERED: MEASLES,MUMPS,RUBELLA VACCINE INJ SC* ONE (09:00)
[2017-02-15] MEDS: SENNA/DOCUSATE NA (8.6MG/50MG) TAB PO SCH (09:26)
[2017-02-15] MEDS: FERROUS SULFATE (EC) 325 MG TAB PO SCH ×2 (09:26→12:28)
--- NOTE | 2017-02-15 09:47 | PD.PPDC ---
STAGE BUILDER Discharge Instruction Condition Patient Condition: Good Diet Diet: Resume Regular Diet Activity/Restrictions Activity: Normal Activity May Shower Restrictions: No Exercising No Lifting No Driving No Sexual Activity Nothing in the Vagina No [place] No Tampons, douche Follow-up Follow-up with Physician: 2, Week/Weeks Provider Information: Appointment clinic in 2 weeks for check Return to clinic for LINKER UP Instructions: Fever greater than 101 Chills Worsening abdominal pain Excessive Vaginal Bleeding More than 2 pads per hour Unable to tolerate diet OB Instructions: Breast Tenderness Depression Blurried Vision Headache GLENNA SINGH MD February 15, 2017 09:47
--- NOTE | 2017-02-15 09:49 | DS ---
Date/Time of Note Date/Time of Note DATE: 02/15/17 TIME: 09:47 Discharge Summary Admission/Discharge Info Admit Date/Time February 13, 2017 at 11:13 Discharge Date/Time February 15, 2017 at 9:45 AM Final Diagnosis Post normal vaginal delivery Patient Condition: Good Procedures Normal spontaneous vaginal delivery Hx of Present Illness Term in labor Hospital Course Satisfactory Home Meds Discontinued Reported Medications Cyanocobalamin (B12 Health Booster) 1,000 Mcg/15 Ml Oral.susp, 1000 MCG PO 01/07/17 Iron (Iron) 18 Mg Tablet, 18 MG PO, TAB 01/07/17 Multivit/Min/Fol Ac/Iron/Pren* ( S*) 1 Tab Tab, 1 TAB PO DAILY, TAB 01/07/17 Follow-up Plan Appointment clinic in 2 weeks for follow-up Primary Care Provider [facility] Time spent on discharge: < 30 minutes GLENNA SINGH MD February 15, 2017 09:49
== END 2017-02-15 15:30 | disposition home or self-care (01) | DRG 775 ==
LOC: OBT 10:09 → L-D 10:10 → OBT 10:58 → L-D 11:13 → PP1 20:46
PROVIDERS: ADMIT Obstetrics & Gynecology; ATTEND Obstetrics & Gynecology
PROC: 10E0XZZ Delivery of Products of Conception, External Approach (ICD-10-PCS; principal; 2017-02-13)
DX: O80 Encounter for full-term uncomplicated delivery (principal); Z37.0 Single live birth; Z3A.38 38 weeks gestation of pregnancy
CPT/HCPCS: 80307; 85025; 85610; 85730; 86592; 86850; 86900; 86901; 87340; G0463; J0290; J2590; J7120